=== PATIENT | female | born 1940 | race Caucasian/White ===

== ENCOUNTER 2017-08-02 09:10 | Day surgery (SDC) | payer MEDICARE, BC ==
--- NOTE | 2017-08-01 23:29 | Pre-Procedure Note/Attestation ---
Pre-Procedure Note/Attestation Complete Prior to Procedure Planned Procedure: left - Removal of cataract and placement of intraocular lens , left eye Procedure Narrative: Removal of cataract and placement of intraocular lens, left eye Indications for Procedure Pre-Operative Diagnosis: Cataract, combined, left eye Attestation I attest that I discussed the nature of the procedure; its benefits; risks and complications; and alternatives (and the risks and benefits of such alternatives ), prior to the procedure, with the patient (or the patient's legal telephone claims representative). I attest that, if there was a reasonable possibility of needing a blood transfusion, the patient (or the patient's legal telephone claims representative) was given the [place] [employer] standardized written summary, pursuant to the Yovany Elfego Blood Safety Act ([place] Health and Safety Code # 1645, as amended). I attest that I re-evaluated the patient just prior to the surgery and that there has been no change in the patient's H&P, except as documented below: Obdulio Moon MD Aug 01, 2017 23:29
[~2017-08-02] VITALS: Ht 160 cm; Wt 80.7 kg
[2017-08-02] VITALS (7 sets, daily range): BP systolic 105–145; BP diastolic 61–78
[2017-08-02] MEDS ORDERED: Cyclopentolate 1% Opth Sol 2ml ONE (09:19)
[2017-08-02] MEDS ORDERED: Tropicamide 1% Opth 15ml Soln ONE (09:19)
[2017-08-02] MEDS ORDERED: Ciprofloxacin Opth Soln 2.5ml ONE (09:19)
[2017-08-02] MEDS ORDERED: Akten 3.5% 1ml Btl ONE (09:19)
[2017-08-02] MEDS ORDERED: Phenylephrine 10% Opth Soln 5ml ONE (09:19)
[2017-08-02] MEDS: Phenylephrine 10% Opth Soln 5ml LEFT EYE SCH ×3 (09:45→10:13)
[2017-08-02] MEDS: Akten 3.5% 1ml Btl LEFT EYE SCH ×3 (09:46→10:13)
[2017-08-02] MEDS: Tropicamide 1% Opth 15ml Soln LEFT EYE SCH ×3 (09:46→10:13)
[2017-08-02] MEDS: Cyclopentolate 1% Opth Sol 2ml LEFT EYE SCH ×3 (09:46→10:13)
[2017-08-02] MEDS: Ciprofloxacin Opth Soln 2.5ml LEFT EYE SCH ×3 (09:52→10:13)
[2017-08-02] MEDS ORDERED: BREO ELLIPTA 11 EACH IH (10:10)
[2017-08-02] MEDS ORDERED: ASPIR 8181 MG ORAL (10:10)
[2017-08-02] MEDS ORDERED: Lidocaine 1% MPF 10mg/ml 5ml ONE ×2 (13:30→15:14)
[2017-08-02] MEDS ORDERED: Propofol 200mg/20ml IV ONE (13:30)
[2017-08-02] MEDS ORDERED: Sterile Water Irrig 1000ml IRRIG ONE (13:30)
[2017-08-02] MEDS ORDERED: LR 1000ml ONE (13:30)
[2017-08-02] MEDS ORDERED: NS Irrig 1000ml ONE (13:30)
[2017-08-02] MEDS ORDERED: Alfentanil 2ml Inj ONE (13:30)
[2017-08-02] MEDS ORDERED: Midazolam 2mg/2ml Inj ONE (13:41)
[2017-08-02] MEDS ORDERED: LR 1000ml 1,000 ML IVLG SCH (13:58)
[2017-08-02] MEDS ORDERED: Ketorolac 30mg Inj IV PRN ×2 (14:00)
[2017-08-02] MEDS ORDERED: HYDROcodone/Acetamin 7.5/325 tab ORAL PRN (14:00)
[2017-08-02] MEDS ORDERED: Norco 5mg/325mg tab ORAL PRN (14:00)
[2017-08-02] MEDS ORDERED: Labetalol 5mg/ml 20ml vial IV PRN (14:00)
[2017-08-02] MEDS ORDERED: Midazolam 2mg/2ml Inj IVP PRN (14:00)
[2017-08-02] MEDS ORDERED: DiphenhydrAMINE 50mg/ml Inj IVP PRN (14:00)
[2017-08-02] MEDS ORDERED: fentaNYL 100 mcg/2 mL IV PRN (14:00)
[2017-08-02] MEDS ORDERED: LORazepam Inj 2mg/ml 1ml IV PRN (14:00)
[2017-08-02] MEDS ORDERED: Hydromorphone 0.5mg/0.5ml inj IVP PRN (14:00)
[2017-08-02] MEDS ORDERED: oxyCODONE HCL/Acetaminophen 5/325mg ORAL PRN (14:00)
[2017-08-02] MEDS ORDERED: Atropine Inj 1mg/10ml Syr IV PRN (14:00)
--- NOTE | 2017-08-02 14:04 | Anethesia Preoperative Eval ---
Anesthesia Pre-op PMH/ROS General Date of Evaluation: Aug 02, 2017 Time of Evaluation: 13:39 Anesthesiologist: Javon ASA Score: ASA 2 Mallampati Score Class I : Soft palate, uvula, fauces, pillars visible Class II: Soft palate, uvula, fauces visible Class III: Soft palate, base of uvula visible Class IV: Only hard plate visible Mallampati Classification: Class II Surgeon: Sarai Diagnosis: Cat OS Surgical Procedure: Cat Ext IOL OS Anesthesia History: none Family History: no anesthesia problems Allergies: Coded Allergies: PENICILLINS (Verified Allergy, Unknown, 08/02/17) Medications: see eMAR Past Medical History Pulmonary: Reports: asthma Neurologic/Psychiatric: Reports: depression/anxiety HEENT: Reports: cataract (L), cataract (R) PSxH Narrative: R TKR Anesthesia Pre-op Phys. Exam Physician Exam Last Vital Signs Date Time Temp Pulse Resp B/P (MAP) Pulse Ox O2 Delivery O2 Flow Rate FiO2 08/02/17 09:58 98.5 71 18 125/61 96 Room Air 98.5 Constitutional: NAD Neurologic: CN 2-12 intact Cardiovascular: RRR Respiratory: CTA Gastrointestinal: S/NT/ND Airway Exam Mallampati Classification ASA 2 Mallampati Score: Class II MO: full ROM: full Teeth: intact Anesthesia Pre-op A/P Risk Assessment & Plan Assessment: ASA 2 Plan: TIVA Status Change Before Surgery: Ashwin Magallanes MD Aug 02, 2017 14:04
--- NOTE | 2017-08-02 14:05 | Immediate Post-Op Evaluation ---
Immediate Post-Op Evalulation Immediate Post-Op Evalulation Procedure: Cat Ext IOL OS Date of Evaluation: Aug 02, 2017 Time of Evaluation: 14:54 IV Fluids: 650 LR Blood Products: 0 Estimated Blood Loss: 1 Urinary Output: 0 Blood Pressure Systolic: 145 Blood Pressure Diastolic: 76 Pulse Rate: 79 Respiratory Rate: 16 O2 Sat by Pulse Oximetry: 96 Temperature (Fahrenheit): 98.2 Pain Score (1-10): 1 Nausea: No Vomiting: No Complications 0 Patient Status: awake, reacts, patent, none Hydration Status: adequate Ashwin Alejandro MD Aug 02, 2017 14:05
--- NOTE | 2017-08-02 14:05 | 48 Hour Post Anesthesia Eval ---
Post Anesthesia Evaluation Procedure: Cat Ext IOL OS Date of Evaluation: Aug 02, 2017 Time of Evaluation: 15:57 Blood Pressure Systolic: 142 0: 74 Pulse Rate: 72 Respiratory Rate: 18 Temperature (Fahrenheit): 98.4 O2 Sat by Pulse Oximetry: 96 Airway: patent Nausea: No Vomiting: No Pain Intensity: 1 Hydration Status: adequate Cardiopulmonary Status: Stable Mental Status/LOC: patient returned to baseline Follow-up Care/Observations: 0 Post-Anesthesia Complications: 0 Follow-up care needed: ready to discharge Ashwin Alejandro MD Aug 02, 2017 14:05
[2017-08-02] MEDS ORDERED: Povidone-Iodine 5% opth solution ONE (14:15)
[2017-08-02] MEDS ORDERED: Pred Forte 1% Opth Susp 1ml ONE (14:15)
--- NOTE | 2017-08-02 14:49 | Discharge Instructions ---
Discharge Instructions Discharge Instructions Follow Up Orders Wear shield at all times except to place eye drops Continue preoperative eye drops Followup in Dr Moon's office tomorrow at 12:15 For Congestive Heart Failure Reminder Report to your physician any weight gain of 5 pounds or more in one week. Obdulio Moon MD Aug 02, 2017 14:49
--- NOTE | 2017-08-02 14:51 | Brief Operative Note ---
Immediate Post Operative Note Operative Note Pre-op Diagnosis: Cataract, combined, left eye Procedure: Phaco PC IOL, OS Post-op Diagnosis: same as pre-op Surgeon: Ute Moon MD General Internal Medicine Physician: none Anesthesiologist: Dr Alejandro Anesthesia: local, MAC Specimen: none Complications: none Fluids: as noted Implant(s) used?: Yes - teckyleigh [id number] 11.5 Obdulio Moon MD Aug 02, 2017 14:51
[2017-08-02] MEDS ORDERED: Lidocaine 4% Amp ONE (15:13)
[2017-08-02] MEDS ORDERED: EPINEPHrine 1mg/1ml Amp ONE (15:13)
[2017-08-02] MEDS ORDERED: Dexamethasone 4mg/ml vial ONE (15:14)
[2017-08-02] MEDS ORDERED: BSS 15ml BTL ONE (15:14)
[2017-08-02] MEDS ORDERED: Maxitrol Opth Oint 3.5gm ONE (15:14)
[2017-08-02] MEDS ORDERED: Sodium Hyaluronate 10 mg/ml 0.85ml ONE (15:14)
[2017-08-02] MEDS ORDERED: BSS 500ml btl ONE (15:14)
[2017-08-02] MEDS ORDERED: Tetracaine 0.5% Opth 4ml Soln ONE (15:14)
--- NOTE | 2017-08-04 22:00 | Operative Note - Dictated ---
DATE OF OPERATION: 08/02/2017 SURGEON: Obdulio Moon MD. 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 ANESTHESIOLOGIST: Dr. Alejandro. ANESTHESIA: Local/standby/monitored anesthesia care. PREOPERATIVE DIAGNOSIS: Cataract, combined, left eye. POSTOPERATIVE DIAGNOSIS: Cataract, combined, left eye. PROCEDURE: 1. Phacoemulsification of cataract, left eye. 2. Placement of posterior chamber intraocular lens, left eye (model Duarte [id number], power 11.5). SPECIMENS: None. COMPLICATIONS: None. INDICATIONS FOR SURGERY: The patient has had the painless progressive decrease in visual acuity in the left eye secondary to cataract. The patient understands the risks of surgery including infection, bleeding, need for further surgery, loss of vision, no improvement in vision, loss of the eye, loss of life, glaucoma, retinal detachment, and understands these risks and elects to proceed with surgery. FINDINGS: The patient has a +3 nuclear sclerotic cataract as well as +2 cortical changes. OPERATIVE NOTE: After informed consent was obtained, the patient was brought into the operating room and placed in supine position. Cardiac and respiratory monitors were attached. A time-out was performed and all criteria were met and everyone in the room agreed. The left eye was then draped and prepped in sterile manner for ocular surgery. A lid speculum was placed in the eye. A 1% lidocaine preservative-free was injected at the approximate 3 o'clock limbus. A conjunctiva peritomy from approximately 2 o'clock to 3 o'clock was made and dissected posteriorly. Hemostasis was maintained with bipolar cautery. A 2.8 mm limbal incision was made centered approximately at 2:30 and dissected anteriorly. Paracentesis was made at approximately at 5:30 and Shugarcaine was injected into the anterior chamber. The anterior chamber was then entered using a 2.8 mm keratome through the limbal incision. An anterior capsulorrhexis was then performed. Hydrodissection and hydrodelineation of the lens was then performed. The lens was then phacoemulsified using a divide and conquer four-quadrant technique. Residual cortical material was then aspirated. The intraocular lens was placed into the cartridge and Healon was injected into the anterior chamber and capsular bag. The tip of the cartridge was brought up to the wound and the lens was injected into the capsular bag and centered nicely with a Sinskey hook. Healon was then aspirated from the anterior chamber and capsular bag. The limbal wound and paracentesis were hydrated closed. One 10-0 nylon interrupted suture was then placed through the limbal incision and the knot was rotated and buried. Care was taken during the entire procedure not to touch the endothelium. The wounds were checked and found to be watertight. The conjunctiva was then closed with forceps cautery. The lid speculum and drapes were removed from the eye and drops of Pred Forte and ciprofloxacin were applied to the eye followed by Maxitrol ointment and then a shield. The patient tolerated the procedure well and left the operating room in awake and alert in stable condition. Obdulio Moon M.D. DR: TAMMY JOB#: [id number] CC:
== END 2017-08-02 16:00 | disposition home or self-care (01) ==
LOC: SUR 09:10
DX: H25.12 Age-related nuclear cataract, left eye (principal); H25.012 Cortical age-related cataract, left eye; F41.9 Anxiety disorder, unspecified; F32.9 Major depressive disorder, single episode, unspecified; Z88.0 Allergy status to penicillin; Z96.651 Presence of right artificial knee joint
CPT/HCPCS: 66984; J0171; J1100; J2250; J2704; J3490; J7120; V2632; 94003; 94150